=== PATIENT | male | born 1995 | race Caucasian/White ===

== ENCOUNTER 2017-09-11 03:15 | Emergency (ER) | payer BC ==
[~2017-09-11] VITALS: Ht 195.6 cm; Wt 95.0 kg
[2017-09-11 03:23] VITALS: Ht 195.6 cm; Wt 95.0 kg
[2017-09-11 03:29] VITALS: O2SAT 96
[2017-09-11 03:49] LABS: CALCIUM 8.5 mg/dl (8.5-10.1); CREATININE 1.14 mg/dl (0.60-1.40); POTASSIUM 4.1 mmol/L (3.5-5.1)
[2017-09-11] MEDS ORDERED: PROP1TAB PO (04:30)
[2017-09-11] MEDS ORDERED: LORAZEPAM 2 MG/ML 1 ML VIAL IM STA (05:23)
[2017-09-11] MEDS ORDERED: HALOPERIDOL LACTATE 5 MG/ML 1 ML VIAL IM STA (05:23)
[2017-09-11 11:19] VITALS: BP 105/59; PULSE 73; TEMP 36.5; O2SAT 100
--- NOTE | 2017-09-11 17:00 | EMERGENCY ROOM VISIT NOTE ---
ED Visit Note First contact with patient: 08:32 Patient was signed out to me by Janet SOUTH dictation due to shift change. Please see his dictation for full history and physical. Patient remained stable while in the ED. He did wake up once to urinate. He did go back to sleep. He woke again just before noon. He states he remembers everything about the evening. He was downtown and tripped over his own shoe, falling into a bench. He states he did not strike the ground. It was witnessed by police. They evaluated him and brought him here for care. He currently denies any discomfort. He is upset about being brought here, and not having his cell phone. He denies any headache, neck pain, chest pain, shortness of breath, abdominal pain, or extremity pain. No nausea or vomiting. Reexamination reveals good motion of his upper and lower extremities. No discomfort with palpation over his cervical spine. He is coherent and desires discharge. He was instructed to follow-up with his PCP or return to the ED for any new concerns. Lion care handout was provided. Alcohol intoxication handout was provided. Tylenol and Motrin today as needed for any minor discomfort. Maintain hydration. Avoid alcohol. Current/Historical Medications Scheduled Propranolol (Inderal), 30 MG PO DAILY Allergies Coded Allergies: No Known Allergies (Unverified , 09/11/17) Vital Signs Date Time Temp Pulse Resp B/P (MAP) Pulse Ox O2 Delivery O2 Flow Rate FiO2 09/11/17 11:19 36.5 73 18 105/59 100 09/11/17 11:10 73 100 09/11/17 10:40 77 18 98 09/11/17 10:35 71 12 98 09/11/17 10:05 80 100 09/11/17 10:00 105/59 09/11/17 09:50 80 99 09/11/17 09:30 106/62 09/11/17 09:20 78 99 09/11/17 09:01 108/68 09/11/17 08:50 82 14 99 09/11/17 08:31 121/65 09/11/17 08:30 123/95 09/11/17 08:20 106 100 09/11/17 07:50 80 97 09/11/17 07:45 81 96 09/11/17 07:30 80 93 09/11/17 07:26 79 09/11/17 07:15 74 16 92 09/11/17 07:00 68 14 93 09/11/17 06:45 79 94 09/11/17 06:30 78 93 Room Air 09/11/17 06:00 94 93 Room Air 09/11/17 05:30 96 19 95 Room Air 09/11/17 05:00 88 18 96 Room Air 09/11/17 04:45 100 20 96 Room Air 09/11/17 04:15 92 14 96 Room Air 09/11/17 03:45 94 19 98 Room Air 09/11/17 03:43 Room Air 09/11/17 03:29 96 Room Air 09/11/17 03:29 92 09/11/17 03:23 36.5 91 18 151/61 98 Room Air 09/11/17 03:23 151/61 Laboratory Results 09/11/17 03:25 Test 09/11/17 03:25 Anion Gap 4.0 mmol/L (3-11) Est Creatinine Clear Calc Drug Dose 128.1 ml/min Estimated GFR () 105.2 Estimated GFR (Non- 90.8 BUN/Creatinine Ratio 12.6 (10-20) Calcium Level 8.5 mg/dl (8.5-10.1) Ethyl Alcohol mg/dL 304.0 mg/dl (0-3) Medications Administered Medications (Trade) Dose Ordered Sig/Dara Route Start Time Stop Time Status Last Admin Dose Admin Haloperidol Lactate (Haldol Inj) 5 mg NOW STAT IM 09/11/17 05:23 09/11/17 05:25 DC 09/11/17 05:30 5 MG Lorazepam (Ativan Inj) 2 mg NOW STAT IM 09/11/17 05:23 09/11/17 05:25 DC 09/11/17 05:30 2 MG Departure Information Impression Primary Impression: Alcohol intoxication Dispostion Home / Self-Care Referrals No Doctor, Assigned (PCP) [facility] Forms ALCOHOL OVERDOSE (21 OR Older), HOME CARE DOCUMENTATION FORM, MOTRIN USE, TYLENOL USE, IMPORTANT VISIT INFORMATION Patient Instructions Alcohol Intoxication - [facility], [facility], [facility], [place]: [employer] Students and Alcohol Related Visits Additional Instructions Maintain hydration Avoid alcohol intake today Tylenol and Motrin every 6 hours as needed for discomfort Return to the ED for any acute changes or worsening of symptoms
--- NOTE | 2017-09-12 06:54 | EMERGENCY ROOM VISIT NOTE ---
ED Visit Note First contact with patient: 03:23 CHIEF COMPLAINT: Altered mental status from Alcohol overdose HISTORY OF PRESENT ILLNESS: This 22 year old male patient presents to the emergency department via ambulance for evaluation of altered mental status, presumably from alcohol intoxication. The patient was seen stumbling downtown on the sidewalk. He ran into a park bench, but did not fall to the ground. The patient admitted that he was drinking to EMS. He was unsure of his location was brought to the ER for further evaluation. The patient is angry that he is here. He wishes to leave the ER. He is minimally cooperative. REVIEW OF SYSTEMS: Review of systems was somewhat limited secondary to patient' s presumed alcohol intoxication status. Review of systems was performed to the best of our ability and reperformed as the patient began to sober up. All other systems were reviewed and are negative. ALLERGIES: See EMR MEDICATIONS: See EMR PMH: No chronic medical disease SOCIAL HISTORY: Lives locally. Drink alcohol. PHYSICAL EXAM VITALS: Vitals are noted on the nurse's note and reviewed by myself. Vital signs stable. GENERAL: White male, who is in no acute distress and resting comfortably. Patient is visibly altered and smells of alcohol. He is not cooperative. HEAD: Normocephalic atraumatic. EARS: External ear normal. External auditory canals clear, tympanic membranes pearly lloyd without erythema or effusion bilaterally. EYES: Pupils equal round and reactive to light and accommodation. Conjunctivae without injection, sclerae without icterus. Extraocular movements intact. NOSE: Patent, turbinates without inflammation or discharge. MOUTH: Mucous membranes moist. Tonsils are not enlarged. Pharynx without erythema, blood, vomitus, or exudate. Uvula midline. Airway patent. NECK: Supple without nuchal rigidity. No lymphadenopathy. Cervical spine is nontender. HEART: Regular rate and rhythm without murmurs gallops or rubs. LUNGS: Clear to auscultation bilaterally without wheezes, rales or rhonchi. No retractions or accessory muscle use. ABDOMEN: Positive normal bowel sounds x 4. Soft, nontender, without masses or organomegaly. No guarding or rebound tenderness. MUSCULOSKELETAL: No muscle atrophy, erythema, or edema noted. Gross motor function intact to all extremities. NEURO: Patient was alert to person but not place or time. They appear with altered mental status. SKIN: The skin was without rashes, erythema, edema, or bruising. No Tenting of the skin. EMERGENCY DEPARTMENT COURSE: Physical exam and history was performed. Nursing notes and EMR were reviewed. The patient appears to be altered on my examination. I suspect this is from an alcohol overdose. Conservative care measures and aspiration precautions were instituted. The patient was placed on it admin and watched during the patient's stay. The patient was placed in a prone position. The patient did consent to blood work, and this was obtained without difficulty. Shortly after providing the blood work the patient became increasingly belligerent. He was yelling inappropriately at staff and nursing. The patient expressed a desire to leave the emergency department, and attempted to get out of his bed against our instruction. The patient became increasingly physical and was felt to be a potential harm to himself and certainly to others. The patient was not able to verbally de-escalate, and I was not able to redirect him. He became more threatening, and because of this he was given 5 mg IM Haldol and 2 mg IM Ativan. This did improve the patient's status, and he was able to rest comfortably. Blood work was obtained and was reviewed. The patient's blood alcohol level was 304. This appears to be the primary cause of the altered status. Patient was reevaluated multiple times throughout the course of their emergency department stay. He remained in stable condition until the time of shift change. The case was discussed with Byron Parnell PA-C. The patient will need reevaluation after sobering up. Please see Mr. Alejandracrysleyda's dictation for further patient course, plan, and disposition. Differential diagnosis: Etiologies such as alcohol intoxication, metabolic, infection, hypoglycemia, electrolyte abnormalities, cardiac sources, intracerebral event, toxicologic, neurologic, as well as others were entertained. Critical Care: I have personally spent greater than 30 minutes of critical care time in the direct management of this patient. This includes bedside care, interpretation of diagnostic studies, and testing, discussion with consultants, patient, and family members, and other required patient management activities. This 30 minutes is in excess of all separately billable procedures. Current/Historical Medications Scheduled Propranolol (Inderal), 30 MG PO DAILY Allergies Coded Allergies: No Known Allergies (Unverified , 09/11/17) Vital Signs Date Time Temp Pulse Resp B/P (MAP) Pulse Ox O2 Delivery O2 Flow Rate FiO2 09/11/17 11:19 36.5 73 18 105/59 100 09/11/17 11:10 73 100 09/11/17 10:40 77 18 98 09/11/17 10:35 71 12 98 09/11/17 10:05 80 100 09/11/17 10:00 105/59 09/11/17 09:50 80 99 09/11/17 09:30 106/62 09/11/17 09:20 78 99 09/11/17 09:01 108/68 09/11/17 08:50 82 14 99 09/11/17 08:31 121/65 09/11/17 08:30 123/95 09/11/17 08:20 106 100 09/11/17 07:50 80 97 09/11/17 07:45 81 96 09/11/17 07:30 80 93 09/11/17 07:26 79 09/11/17 07:15 74 16 92 09/11/17 07:00 68 14 93 09/11/17 06:45 79 94 09/11/17 06:30 78 93 Room Air 09/11/17 06:00 94 93 Room Air 09/11/17 05:30 96 19 95 Room Air 09/11/17 05:00 88 18 96 Room Air 09/11/17 04:45 100 20 96 Room Air 09/11/17 04:15 92 14 96 Room Air 09/11/17 03:45 94 19 98 Room Air 09/11/17 03:43 Room Air 09/11/17 03:29 96 Room Air 09/11/17 03:29 92 09/11/17 03:23 36.5 91 18 151/61 98 Room Air 09/11/17 03:23 151/61 Laboratory Results 09/11/17 03:25 Test 09/11/17 03:25 Anion Gap 4.0 mmol/L (3-11) Est Creatinine Clear Calc Drug Dose 128.1 ml/min Estimated GFR () 105.2 Estimated GFR (Non- 90.8 BUN/Creatinine Ratio 12.6 (10-20) Calcium Level 8.5 mg/dl (8.5-10.1) Ethyl Alcohol mg/dL 304.0 mg/dl (0-3) Medications Administered Medications (Trade) Dose Ordered Sig/Dara Route Start Time Stop Time Status Last Admin Dose Admin Haloperidol Lactate (Haldol Inj) 5 mg NOW STAT IM 09/11/17 05:23 09/11/17 05:25 DC 09/11/17 05:30 5 MG Lorazepam (Ativan Inj) 2 mg NOW STAT IM 09/11/17 05:23 09/11/17 05:25 DC 09/11/17 05:30 2 MG Departure Information Impression Primary Impression: Alcohol intoxication Dispostion Home / Self-Care Referrals No Doctor, Assigned (PCP) [facility] Forms ALCOHOL OVERDOSE (21 OR Older), HOME CARE DOCUMENTATION FORM, MOTRIN USE, TYLENOL USE, IMPORTANT VISIT INFORMATION Patient Instructions Alcohol Intoxication - [facility], [facility], [facility]: [employer] Students and Alcohol Related Visits Additional Instructions Maintain hydration Avoid alcohol intake today Tylenol and Motrin every 6 hours as needed for discomfort Return to the ED for any acute changes or worsening of symptoms
== END 2017-09-11 11:25 | disposition home or self-care (01) ==
LOC: EDBD 03:15 → C.EDB 03:20
DX: F10.129 Alcohol abuse with intoxication, unspecified (principal); Y90.8 Blood alcohol level of 240 mg/100 ml or more